=== PATIENT | male | born 1985 | race African-American/Black ===

== ENCOUNTER 2019-08-06 06:40 | Emergency (ER) | payer OTHER ==
[~2019-08-06] VITALS: Ht 177.8 cm; Wt 90.7 kg
[2019-08-06 07:06] LABS: ABSOLUTE NEUTROPHILS 9.4 thou/uL (1.4-8.2); BASOPHILS 0.6 % (0.0-2.0); EOSINOPHILS 0.9 % (0.0-3.0); HEMOGLOBIN 15.4 gm/dL (14.0-18.0); LYMPHOCYTES 11.3 % (24.0-44.0); MCH 30.3 pg (26.0-34.0); MCV 94.8 fL (80.0-100.0); MONOCYTES 5.6 % (1.0-8.0); PLATELET COUNT 265 thou/uL (150-400); POLYS 81.6 % (36.0-66.0); RBC 5.07 mil/uL (4.50-6.00); RDW 14.5 % (10.5-14.5); WBC 11.5 thou/uL (4.0-11.0)
[2019-08-06 07:14] LABS: ANION GAP 11 mmol/L (7-16); BUN 9 mg/dL (7-18); CALCIUM 9.5 mg/dL (8.5-10.1); CHLORIDE 101 mmol/L (98-107); CO2 28 mmol/L (21-32); CREATININE 0.8 mg/dL (0.7-1.3); GLUCOSE 113 mg/dL (74-106); POTASSIUM 3.7 mmol/L (3.5-5.1); SODIUM 140 mmol/L (136-145)
[2019-08-06 07:20] LABS: DIRECT BILIRUBIN < 0.1 mg/dL (<0.1-0.2); LIPASE 104 U/L (73-393); SGOT 119 U/L (15-37); SGPT 109 U/L (30-65); TOTAL BILIRUBIN 0.4 mg/dL (<0.1-1.0); TOTAL PROTEIN 8.4 g/dL (6.4-8.2)
[2019-08-06] MEDS ORDERED: BENTYL 20 MG TA20 M1 PO (09:28)
[2019-08-06] MEDS ORDERED: ZOFRAN ODT4 MG PO (09:28)
[2019-08-06 09:35] VITALS: BP 128/87
== END 2019-08-06 09:40 | disposition home or self-care (01) ==
LOC: ER 06:40
PROVIDERS: Emergency Medicine
DX: R11.2 Nausea with vomiting, unspecified (principal); R10.84 Generalized abdominal pain

== ENCOUNTER 2021-02-11 14:35 | Emergency (ER) | payer OTHER ==
[~2021-02-11] VITALS: Ht 177.8 cm; Wt 90.7 kg
[~2021-02-11 14:35] MED LIST: BENTYL 20 MG TA20 M1 PO; ZOFRAN ODT4 MG PO
[2021-02-11 16:45] LABS: URINE BILIRUBIN NEGATIVE (Negative); URINE BLOOD NEGATIVE (Negative); URINE CLARITY CLEAR; URINE COLOR YELLOW; URINE GLUCOSE-RANDOM* NEGATIVE (Negative); URINE KETONES TRACE (Negative); URINE LEUKOCYTES-REFLEX NEGATIVE (Negative); URINE NITRITE-REFLEX NEGATIVE (Negative); URINE PROTEIN (DIPSTICK) NEGATIVE (Negative); URINE SPECIFIC GRAVITY >= 1.030 (1.005-1.035); URINE UROBILINOGEN 0.2 E.U./dl (0.2-1.0)
[2021-02-11 16:54] LABS: ABSOLUTE NEUTROPHILS 5.2 thou/uL (1.4-8.2); BASOPHILS 0.5 % (0.0-2.0); EOSINOPHILS 2.4 % (0.0-3.0); HEMATOCRIT 38.5 % (42.0-52.0); HEMOGLOBIN 12.6 gm/dL (14.0-18.0); LYMPHOCYTES 22.2 % (24.0-44.0); MCH 29.9 pg (26.0-34.0); MCHC 32.7 g/dL (28.0-37.0); MCV 91.5 fL (80.0-100.0); PLATELET COUNT 331 thou/uL (150-400); POLYS 68.9 % (36.0-66.0); RBC 4.21 mil/uL (4.50-6.00); RDW 14.7 % (10.5-14.5); WBC 7.5 thou/uL (4.0-11.0)
[2021-02-11 16:59] LABS: CALCIUM 9.1 mg/dL (8.5-10.1); CREATININE 1.5 mg/dL (0.7-1.3); POTASSIUM 3.7 mmol/L (3.5-5.1)
[2021-02-11 17:05] LABS: ALBUMIN 3.2 g/dL (3.4-5.0); TOTAL BILIRUBIN 0.2 mg/dL (0.2-1.0); TOTAL PROTEIN 6.8 g/dL (6.4-8.2)
[2021-02-11 18:21] VITALS: BP 104/46
[2021-02-11] MEDS ORDERED: ZOFRAN ODT4 MG PO (19:10)
[2021-02-11] MEDS ORDERED: NEXIUM40 MG PO (19:10)
== END 2021-02-11 19:33 | disposition home or self-care (01) ==
LOC: ER 14:35
PROVIDERS: Emergency Medicine
DX: K29.70 Gastritis, unspecified, without bleeding (principal); K21.9 Gastro-esophageal reflux disease without esophagitis

== ENCOUNTER 2021-03-18 10:19 | Emergency (ER) | payer OTHER ==
[~2021-03-18] VITALS: Ht 177.8 cm; Wt 68.0 kg
[~2021-03-18 10:19] MED LIST changes: +NEXIUM40 MG PO
[2021-03-18] MEDS ORDERED: NORTRIPTYLINE H25 M3 PO (10:56)
[2021-03-18] MEDS ORDERED: PROTONIX 20 MG20 MG PO (10:56)
[2021-03-18 10:57] LABS: BASOPHILS 0.5 % (0.0-2.0); EOSINOPHILS 0.7 % (0.0-3.0); HEMATOCRIT 45.6 % (42.0-52.0); HEMOGLOBIN 15.1 gm/dL (14.0-18.0); LYMPHOCYTES 20.8 % (24.0-44.0); MCH 29.4 pg (26.0-34.0); MCHC 33.1 g/dL (28.0-37.0); MCV 88.9 fL (80.0-100.0); MONOCYTES 11.4 % (1.0-8.0); PLATELET COUNT 455 thou/uL (150-400); POLYS 66.6 % (36.0-66.0); RBC 5.13 mil/uL (4.50-6.00); WBC 7.5 thou/uL (4.0-11.0)
[2021-03-18 11:05] LABS: CALCIUM 10.2 mg/dL (8.5-10.1); CREATININE 1.7 mg/dL (0.7-1.3); POTASSIUM 3.7 mmol/L (3.5-5.1)
[2021-03-18 11:11] LABS: ALBUMIN 4.5 g/dL (3.4-5.0); TOTAL BILIRUBIN 0.6 mg/dL (0.2-1.0); TOTAL PROTEIN 9.1 g/dL (6.4-8.2)
[2021-03-18 12:21] VITALS: BP 113/68
[2021-03-18] MEDS ORDERED: ONDANSETRON HCL4 M2 PO (12:21)
[2021-03-18] MEDS ORDERED: CARAFATE 1 GM TA1 G1 PO (12:21)
== END 2021-03-18 12:21 | disposition home or self-care (01) ==
LOC: ER 10:19
PROVIDERS: Emergency Medicine
DX: R11.2 Nausea with vomiting, unspecified (principal); K59.00 Constipation, unspecified; R10.13 Epigastric pain; K21.9 Gastro-esophageal reflux disease without esophagitis; F12.90 Cannabis use, unspecified, uncomplicated; Z79.891 Long term (current) use of opiate analgesic; Z79.899 Other long term (current) drug therapy